=== PATIENT | female | born 1970 | race Hispanic/Latino ===

== ENCOUNTER 2018-02-10 20:14 | Emergency (ER) | payer SELFPAY | END 2018-02-10 23:14 | disposition home or self-care (01) | LOC: ERS 20:14 | DX: M54.5 Low back pain (principal); F17.210 Nicotine dependence, cigarettes, uncomplicated; I10 Essential (primary) hypertension; I72.9 Aneurysm of unspecified site; Z79.84 Long term (current) use of oral hypoglycemic drugs; Z79.899 Other long term (current) drug therapy | CPT/HCPCS: 99283 ==

== ENCOUNTER 2022-03-05 19:03 | Emergency (ER) | payer SELFPAY ==
[2022-03-05] MEDS ORDERED: Bacitracin 1 PK ONE (21:35)
== END 2022-03-05 22:00 | disposition home or self-care (01) ==
LOC: ERS 19:03
DX: S91.001A Unspecified open wound, right ankle, initial encounter (principal); I10 Essential (primary) hypertension; E78.5 Hyperlipidemia, unspecified; X58.XXXA Exposure to other specified factors, initial encounter; Z87.891 Personal history of nicotine dependence
CPT/HCPCS: 99282